=== PATIENT | female | born 2000 | race Two or more races ===

== ENCOUNTER 2022-08-08 09:31 | Outpatient (CLI) | payer OTHER ==
[2022-08-08 09:55] VITALS: BP 113/70
[2022-08-08 10:44] LABS: RUPTURE OF MEMBRANES PLUS NEGATIVE (NEGATIVE)
--- NOTE | 2022-08-09 10:53 | PROVIDER PROGRESS NOTE ---
- HPI Chief Complaint: Leakage of vaginal fluid Current : Current EDU 11/11/22 Gestation 26 Weeks and 3 Days 1 Para 0 Vital Signs Temperature 98.4 F 08/08/22 09:50 Heart Rate 95 08/08/22 09:50 Respiratory Rate 16 08/08/22 09:50 Blood Pressure 113/70 08/08/22 09:50 Temperature 98.4 F 08/08/22 10:55 Heart Rate 95 08/08/22 10:55 Respiratory Rate 16 08/08/22 10:55 Blood Pressure 113/70 08/08/22 10:55 O2 Saturation If not protocol: Oxygen Flow, liters/minute - Procedures OB Procedure Performed: NST Diagnosis/Indication for NST: labor NST Procedure: NST Procedure Start Date 08/08/22 Start Time 09:47 Vibroacoustic Stimulation Used No Patient States Movement Yes monitoring, early for NST EFM: 150, moderate variability, no decelerations [place]: no contractions monitoring reassuring Performed and read 08/08/22 Service Date of procedure: 08/08/22 - Plan Plan: 22yo at 26.3w presenting with concern of leaking fluid for a couple days. Denies contractions, bleeding. Good movement. care in [place], visiting her [facility] . Reports care uncomplicated. NKDA Meds: PNV Med: denies Surg: denies Fam: noncontributory Social: Denies emily VSS: Gen: NAD CV: Regular rate Resp: Breathing unlabored Abd: soft, nt Ext: nt Speculum: no pooling, normal white discharge, cervix appears closed ROMPLUS negative 22yo at 26.3w, false labor and membranes intact - Reassurance given - monitoring reassuring - Discharge to home, follow up with primary OB
== END 2022-08-08 11:05 | disposition home or self-care (01) ==
LOC: WFO 09:31 → FBP 09:37 → WFO 11:05
PROVIDERS: ATTEND Obstetrics & Gynecology
DX: O47.02 False labor before 37 completed weeks of gestation, second trimester (principal); Z3A.26 26 weeks gestation of pregnancy
CPT/HCPCS: 84112; 99214